=== PATIENT | male | born 1990 | race Caucasian/White ===

== ENCOUNTER 2017-03-27 12:21 | Emergency (ER) | payer OTHER ==
[2017-03-27 12:26] VITALS: TEMP 98.4; BMI 24.4
--- NOTE | 2017-03-27 12:42 | PDOC ---
History of Present Illness - General History Source: Patient Exam Limitations: No Limitations - History of Present Illness Initial Comments: 03/27/17 13:10 26 y/o M with a PMHx of seizures presents to the ED with a headache s/p seizure today. Patient reports he had an unwitnessed seizure today and woke up from it. He has a history of seizures and states he noticed his lip bleeding and believes he bit his lip during a seizure. He reports associated weakness and tiredness. On arrival, the patient has one episode of vomiting, but denies nausea. He also reports some left sided arm weakness in addition to generalized weakness. He states he forgot to take his medication last night and has not yet taken it today. Patient saw his neurologist a month ago and his medication and dosage was changed. His last known seizure was about 3 months ago. He denies incontinence during the seizure. Denies numbness or tingling. Denies chest pain , SOB. Denies dizziness. Denies abdominal pain, urinary complaints. Denies vision changes. Denies allergies. Denies prior surgeries. SHx: Marijuana use (2-3 times/week), Occasional tobacco use, no alcohol use Medication: Levetiracetam <Arleth Duron - Last Filed: 03/27/17 13:10> <Jerson Coelho - Last Filed: 03/27/17 15:59> - General Chief Complaint: Headache Stated Complaint: SEIZURE Past History <Arleth Duron - Last Filed: 03/27/17 13:10> - Past Medical History Asthma: No Diabetes: No GI Disorders: No Disorders: No HTN: No Hypercholesterolemia: No Seizures: Yes - Immunization History Immunization Up to Date: Yes - Psycho/Social/Smoking Cessation Hx Anxiety: No Suicidal Ideation: No Smoking Status: No Smoking History: Unknown if ever smoked Have you smoked in the past 12 months: Yes Number of Cigarettes Smoked Daily: 0 If you are a former smoker, when did you quit?: 2 WEEKS Information on smoking cessation initiated: No Hx Alcohol Use: No Drug/Substance Use Hx: No Substance Use Type: None <Jerson Coelho - Last Filed: 03/27/17 15:59> - Past Medical History Allergies/Adverse Reactions: Allergies Allergy/AdvReac Type Severity Reaction Status Date / Time No Known Allergies Allergy Verified 03/27/17 12:23 Home Medications: Ambulatory Orders Levetiracetam [Keppra -] 750 mg PO BID 03/27/17 Review of Systems - Review of Systems Able to Perform ROS?: Yes Comments:: 03/27/17 13:10 GENERAL/CONSTITUTIONAL: (+) weakness, tired. No fever or chills. HEAD, EYES, EARS, NOSE AND THROAT: No change in vision. No ear pain or discharge. No sore throat. CARDIOVASCULAR: No chest pain or shortness of breath. RESPIRATORY: No cough, wheezing, or hemoptysis. GASTROINTESTINAL: (+) vomiting. No nausea, diarrhea or constipation. GENITOURINARY: No dysuria, frequency, or change in urination. MUSCULOSKELETAL: No joint or muscle swelling or pain. No neck or back pain. SKIN: No rash NEUROLOGIC: (+) headache, seizure. No vertigo. ENDOCRINE: No increased thirst. No abnormal weight change. HEMATOLOGIC/LYMPHATIC: No anemia, easy bleeding, or history of blood clots. ALLERGIC/IMMUNOLOGIC: No hives or skin allergy. <Arleth Duron - Last Filed: 03/27/17 13:10> *Physical Exam - Vital Signs Last Vital Signs Temp Pulse Resp BP Pulse Ox 98.4 F 96 H 18 131/80 95 03/27/17 12:24 03/27/17 12:24 03/27/17 12:24 03/27/17 12:24 03/27/17 12:24 - Physical Exam Comments: 03/27/17 13:11 GENERAL: Awake, alert, and fully oriented, in no acute distress. Actively vomiting. HEAD: No signs of trauma EYES: PERRLA, EOMI, sclera anicteric, conjunctiva clear ENT: Auricles normal inspection, hearing grossly normal, nares patent, oropharynx clear without exudates. Moist mucosa NECK: Normal ROM, supple, no lymphadenopathy, JVD, or masses LUNGS: Breath sounds equal, clear to auscultation bilaterally. No wheezes, and no crackles HEART: Regular rate and rhythm, normal S1 and S2, no murmurs, rubs or gallops ABDOMEN: Soft, nontender, normoactive bowel sounds. No guarding, no rebound. No masses EXTREMITIES: Normal range of motion, no edema. No clubbing or cyanosis. No cords, erythema, or tenderness NEUROLOGICAL: Cranial nerves II through XII grossly intact. Normal speech, normal gait. Sensation is equal bilaterally. 5/5 strength bilaterally. SKIN: Warm, Dry, normal turgor, no rashes or lesions noted. <Arleth Duron - Last Filed: 03/27/17 13:10> - Vital Signs Last Vital Signs Temp Pulse Resp BP Pulse Ox 98.4 F 96 H 18 131/80 95 03/27/17 12:24 03/27/17 12:24 03/27/17 12:24 03/27/17 12:24 03/27/17 12:24 <Jerson Coelho - Last Filed: 03/27/17 15:59> ED Treatment Course - Medications Given in the ED: ED Medications Discontinued Medications Generic Name Dose Route Start Last Admin Trade Name Emerson PRN Reason Stop Dose Admin Ondansetron HCl 4 mg 03/27/17 13:00 03/27/17 13:05 Zofran Injection IVPUSH 03/27/17 13:01 4 mg ONCE ONE Administration <Arleth Duron - Last Filed: 03/27/17 13:10> - LABORATORY CBC & Chemistry Diagram: 03/27/17 12:57 03/27/17 12:57 <Jerson Coelho - Last Filed: 03/27/17 15:59> *DC/Admit/Observation/Transfer - Attestations Scribe Attestion: 03/27/17 13:11 Documentation prepared by Arleth Duron, acting as medical technician for Jerson Coelho DO. <Arleth Duron - Last Filed: 03/27/17 13:10> - Attestations Physician Attestion: 03/27/17 12:42 I, Dr. Jerson Coelho, attest that this document has been prepared under my direction and personally reviewed by me in its entirety. I further attest, that it accurately reflects all work, treatment, procedures and medical decision -making performed by me. <Jerson Coelho - Last Filed: 03/27/17 15:59> Diagnosis at time of Disposition: Noncompliance Seizure Qualifiers: Convulsion type: unspecified Qualified Code(s): R56.9 - Unspecified convulsions - Discharge Dispostion Disposition: HOME Condition at time of disposition: Good - Patient Instructions Printed Discharge Instructions: DI for Seizure Disorder -- Adult Additional Instructions: Please take your medicines and follow up with your neurologist.
[2017-03-27] MEDS ORDERED: ONDANSETRON 4 MG/2 ML VIAL IVPUSH ONE ×2 (13:00→13:16)
[2017-03-27] MEDS ORDERED: SODIUM CHLORIDE 1,000 ML IV STA ×2 (13:16→14:39)
[2017-03-27] MEDS ORDERED: ACETAMINOPHEN 1000 MG/100 ML VIAL (NON FORMULARY) IVPB ONE (13:16)
[2017-03-27] MEDS ORDERED: levETIRAcetam 500 MG/5 ML INJECTION VIAL IVPB ONE ×2 (13:27→13:30)
[2017-03-27] MEDS ORDERED: ACETAMINOPHEN INJECTION 100 ML IVPB ONE (13:31)
[2017-03-27 13:51] LABS: BASOPHIL 0.4 % (0-2.0); EOSINOPHIL 0.5 % (0-4.5); MCHC 32.8 g/dl (32.0-35.9); MEAN CELL VOLUME 82.3 fl (80-96); MEAN PLT VOLUME 6.8 fl (7.5-11.1); NEUTROPHILS 59.1 % (42.8-82.8); PLATELET COUNT 243 K/MM3 (134-434); RDW 13.4 % (11.9-15.9); WHITE BLOOD COUNT 5.7 K/mm3 (4.0-10.0)
[2017-03-27 14:44] LABS: ALBUMIN 3.9 g/dl (3.4-5.0); ANION GAP 9 (8-16); CALCIUM 8.7 mg/dL (8.5-10.1); CO2 25 mmol/L (21-32); CREATININE 0.9 mg/dL (0.7-1.3); GLUCOSE,RANDOM 92 mg/dL (74-106); SGOT/AST 15 U/L (15-37); SGPT/ALT 24 U/L (12-78)
[2017-03-27 14:46] LABS: ALK PHOS 83 U/L (45-117); BILIRUBIN,TOTAL 0.3 mg/dL (0.2-1.0)
[2017-03-27 16:29] VITALS: BP 119/75; PULSE 77
== END 2017-03-27 16:29 | disposition home or self-care (01) ==
LOC: JER 12:21
PROC: 3E0337Z Introduction of Electrolytic and Water Balance Substance into Peripheral Vein, Percutaneous Approach (ICD-10-PCS; principal; 2017-03-27)
PROC: 3E033NZ Introduction of Analgesics, Hypnotics, Sedatives into Peripheral Vein, Percutaneous Approach (ICD-10-PCS; 2017-03-27)
PROC: 3E033GC Introduction of Other Therapeutic Substance into Peripheral Vein, Percutaneous Approach (ICD-10-PCS; 2017-03-27)
PROC: 3E033GC Introduction of Other Therapeutic Substance into Peripheral Vein, Percutaneous Approach (ICD-10-PCS; 2017-03-27)
DX: G40.909 Epilepsy, unspecified, not intractable, without status epilepticus (principal); Z91.14 Patient's other noncompliance with medication regimen
CPT/HCPCS: 96361; 96374; 96375; Z9114; 36415; 80053; 85025; 99282-25

== ENCOUNTER 2023-01-19 11:27 | Emergency (ER) | payer OTHER ==
[2023-01-19 11:32] VITALS: BP 129/83; PULSE 64; RESP 18; TEMP 97.3; BMI 26.4
[2023-01-19] MEDS ORDERED: LIDOCAINE HCL 1%, 10 MG/ML (50 mL VIAL) PNB ONE (13:15)
[2023-01-19] MEDS ORDERED: LIDOCAINE HCL/PF 1% SDV 5ML VIAL ONE (13:20)
== END 2023-01-19 15:14 | disposition home or self-care (01) ==
LOC: JER 11:27 → JERFT 11:27 → JER 15:14
PROC: 0RSJXZZ Reposition Right Shoulder Joint, External Approach (ICD-10-PCS; principal; 2023-01-19)
DX: S43.004A Unspecified dislocation of right shoulder joint, initial encounter (principal); X50.1XXA Overexertion from prolonged static or awkward postures, initial encounter
CPT/HCPCS: 73030-TC-RT-FY; 99284-25